=== PATIENT | female | born 1955 | race Caucasian/White ===

== ENCOUNTER 2020-06-07 06:09 | Inpatient (IN) ==
--- NOTE | 2020-05-20 13:11 | PAT Medication Instructions ---
Medication Instructions Date of Service May 20, 2020 Home Medications bisoprolol-hydrochlorothiazide 1 tab PO QAM cholecalciferol (vitamin D3) [Vitamin D3] 75 mcg PO QAM cyanocobalamin (vitamin B-12) 1,000 mcg PO QAM levothyroxine 88 mcg PO QAM multivitamin 1 tab PO QAM DO NOT take the morning of surgery cholecalciferol (vitamin D3) [Vitamin D3] 75 mcg PO QAM cyanocobalamin (vitamin B-12) 1,000 mcg PO QAM multivitamin 1 tab PO QAM Take morning of surgery With a small sip of water, OTHERWISE NOTHING TO EAT OR DRINK AFTER MIDNIGHT: bisoprolol-hydrochlorothiazide 1 tab PO QAM levothyroxine 88 mcg PO QAM Other Notes If you have any questions please call us at [phone] or [phone] or [phone] or [phone]
--- NOTE | 2020-05-23 12:14 | Anesthesiology Consultation ---
Date of Service May 23, 2020 Assessment & Plan (1) Encounter for pre-operative examination: COVID screening: Per assessment on 05/23: Travel screen negative, no known COVID- 19 positive contacts or current COVID-19 related symptoms. Patient was COVID positive 06/08/2019 (Hospitalized at [place]) > symptoms at time of difficulty eating, nausea, chills, mild dyspnea, fever > resolved except residual, mild occasional SOB. Surgeon arranging preop COVID testing. Awaiting results. Chart Review Chart Review: Acceptable Risk for Surgery and Patient seen in Pre Admission Testing Teaching & Discussion Pre-Anesthesia Teaching/Discussion Notes: Instructed NPO after midnight before surgery,except medications with 15 cc of water. Medication instructions provided according to the PAT guidelines. History Surgery Operation Date: 06/07/20 07:45 Proposed Procedures p L2-l3, L5-S1 Decompression and Fusion, L4-L5 Hardware Removal, Spinal Cord Monitoring - Rashad Cowatr, DO Height/Weight Height: 5 ft 7 in Weight: 110 kg Allergies Allergy/AdvReac Type Severity Reaction Status Date / Time No Known Allergies Verified 05/07/20 13:39 Medications Home Medications Medication Instructions Recorded Confirmed Last Taken bisoprolol-hydrochlorothiazide 1 tab PO QAM 05/07/20 05/07/20 Unknown cholecalciferol (vitamin D3) 75 mcg PO QAM 05/07/20 05/07/20 Unknown [Vitamin D3] cyanocobalamin (vitamin B-12) 1,000 mcg PO QAM 05/07/20 05/07/20 Unknown levothyroxine 88 mcg PO QAM 05/07/20 05/07/20 Unknown multivitamin 1 tab PO QAM 05/07/20 05/07/20 Unknown Past Medical History Medical History (Updated 05/24/20 @ 08:28 by Theresa Kang) Arthritis GERD (gastroesophageal reflux disease) controlled History of anemia History of COVID-19 COVID positive 06/08/19 (Hospitalized at [place]) > symptoms at time of difficulty eating, nausea, chills, mild dyspnea, fever > resolved except residual mild, occasional sob (significantly improved) Hx of thyroid nodule s/p thyroidectomy Hypertension Hypothyroidism Obesity Exercise / Class Metabolic Activity III < 4 Walking/Shop/Light housework Past Family History Family History Grandmother (Maternal) Family hx of colon cancer Other No family history of adverse response to anesthesia Past Surgical History Surgical History Fusion of spine Lumbar H/O total thyroidectomy History of bilateral tubal ligation History of carpal tunnel release R/L History of colonoscopy History of esophagogastroduodenoscopy (EGD) History of repair of rotator cuff Right History of total knee replacement R/L [place] teeth removed Past Anesthesia History No Family Hx of Anesthesia Complications and Other ("slow to wake" > no known hx of reintubation) History of PONV History of PONV (x1 episode) and Hx of Motion Sickness (+ vertigo) Social History Smoking Status: Never smoker Do You Dip or Chew Tobacco: No Hx Alcohol Use: No Hx Substance Use: No substance use type: does not use Review of Systems + Snoring (no apnea events). Does have mild, residual sob on occasion since have COVID infection 05/2019- patient states significantly improving but does still get episodes. Patient denies chest pain, fever, chills, cough, wheezing, palpitations. Physical Exam Vital Signs VITALS BP 104/69 P 75 TEMP 98.2 SP02 98%RA RESP 16 PHYSICAL Full neck and c-spine range of motion. Full TMJ range of motion. TMD 3 finger breaths Mallampati Score 1 Dentition: intact Lungs: clear throughout to auscultation Cardiac: regular rate and rhythm, no murmurs noted Spine: normal Carotid arteries: negative bruit Extremities: no edema Testing Laboratory Results 05/23/20 13:02 05/23/20 13:02 PT 9.8 Seconds (9.0-12.0) 05/23/20 13:02 INR 1.0 (0.9-1.1) 05/23/20 13:02 APTT 27.3 Seconds (21.0-31.0) 05/23/20 13:02 Urine Color Yellow 05/23/20 Unknown Urine Appearance Clear (Clear) 05/23/20 Unknown Urine pH 5.0 (4.5-7.5) 05/23/20 Unknown Ur Specific [place] 1.024 (1.000-1.030) 05/23/20 Unknown Urine Protein Negative (Negative) 05/23/20 Unknown Urine Glucose (UA) Negative (Negative) 05/23/20 Unknown Urine Ketones Trace (Negative) H 05/23/20 Unknown Urine Nitrite Negative (Negative) 05/23/20 Unknown Ur Leukocyte Esterase Negative (Negative) 05/23/20 Unknown Blood Type O Negative 05/23/20 13:02 Antibody Screen NEGATIVE 05/23/20 13:02 Electrocardiogram Date: 05/23/20 Findings: + NSR @ (65) Chest X-Ray Date: 05/23/20 FINDINGS: The cardiac and mediastinal contours are normal. There is no evidence of focal pulmonary consolidation. There is no evidence of failure. No pleural effusions are visualized. There are few subtle interstitial peripheral opacities likely representing areas of scarring. Degenerative changes are present within the thoracic spine. IMPRESSION: Subtle peripheral interstitial pulmonary opacities likely representing areas of scarring. No evidence of failure. No evidence of lobar consolidation. Report forwarded to PCP for continuity of care.
[2020-05-23 13:29] LABS: Appearance Urine Clear (Clear); Bilirubin Urine Negative (Negative); Blood Urine Negative (Negative); Color Urine Yellow; Glucose Urine UA Negative (Negative); Ketones Urine Trace (Negative); Leukocyte Esterase Urine Negative (Negative); Nitrite Urine Negative (Negative); Protein Urine Negative (Negative); Specific Gravity Urine 1.024 (1.000-1.030); Urobilinogen Urine Negative (Negative)
[2020-05-23 13:38] LABS: Basophils # (auto) 0.03 K/uL (0-0.2); Basophils % (auto) 0.6 %; Eosinophils # (auto) 0.09 K/uL (0-0.5); Eosinophils % (auto) 1.7 %; Hematocrit (blood only) 34.9 % (37-47); Hemoglobin 11.5 g/dL (12.0-16.0); Lymphocytes # (auto) 1.57 K/uL (1.2-3.4); Lymphocytes % (auto) 30.1 %; Mean Corpuscular Hemoglobin 29.1 pg (25-34); Mean Corpuscular Volume 88.4 fL (80-100); Mean Platelet Volume 9.4 fL (7.4-10.4); Monocytes # (auto) 0.23 K/uL (0.11-0.59); Monocytes % (auto) 4.4 %; Neutrophils # (auto) 3.29 K/uL (1.4-6.5); Neutrophils % (auto) 63.2 %; Platelet Count 283 K/uL (130-400); RDW Coefficient of Variation 13.9 % (11.5-14.5); RDW Standard Deviation 45.6 fL (36.4-46.3); Red Blood Count 3.95 M/uL (4.2-5.4); White Blood Count 5.21 K/uL (4.8-10.8)
--- NOTE | 2020-05-23 13:44 | XRay Report ---
XR chest Pre-admission PA/Lat CLINICAL HISTORY: PREOP COMPARISON STUDY: No previous studies for comparison. FINDINGS: The cardiac and mediastinal contours are normal. There is no evidence of focal pulmonary co nsolidation. There is no evidence of failure. No pleural effusions are visualized.[There are few subt le interstitial peripheral opacities likely representing areas of scarring. Degenerative changes are present within the thoracic spine. IMPRESSION: 1. Subtle peripheral interstitial pulmonary opacities likely representing areas of scarring. 2. No evidence of failure. No evidence of lobar consolidation ACT 112: Negative or not required by law. Electronically signed by: Jose Arias M.D. 05/23/2020 1:43 PM
[2020-05-23 13:46] LABS: Partial Thromboplastin Time 27.3 Seconds (21.0-31.0); Prothrombin Time 9.8 Seconds (9.0-12.0)
[2020-05-23 14:07] LABS: BUN Creatinine Ratio 19.3 (10-20); Creatinine Clr Calc Pharmacy 78.1 ml/min; Est GFR (African American) 75.3; Est GFR (Non-African American) 64.9; Potassium 4.1 mmol/L (3.5-5.1)
--- NOTE | 2020-05-23 16:47 | Electrocardiogram Report ---
Test Reason : Blood Pressure : / mmHG Vent. Rate : 065 BPM Atrial Rate : 065 BPM P-R Int : 170 ms QRS Dur : 084 ms QT Int : 446 ms P-R-T Axes : 046 053 062 degrees QTc Int : 463 ms Normal sinus rhythm Normal ECG No previous ECGs available Confirmed by Mauricio Rodriguez ([id number]) on 05/23/2020 4:47:10 PM Referred By: Rashad Cowart Confirmed By:Usama Rodriguez
[~2020-06-07 06:09] MED LIST: ACETAMINOPHEN 500 MG TAB PO SCH; CeleBREX 200 MG CAP PO SCH; GABAPENTIN 600 MG DOSE PO SCH; LR 15ML/HR IV SCH; ceFAZolin 2000MG 2,000 MG/15 ML SYR IV SCH
[2020-06-07] MEDS ORDERED: MIDAZOLAM HCL 1 MG/ML 2ML VIAL ONE (06:51)
[2020-06-07] MEDS ORDERED: fentaNYL citrate 100 MCG/2 ML VIAL ONE ×2 (06:51)
[2020-06-07] MEDS ORDERED: BUPIVACAINE/EPINEPHRINE 0.5% MPF 1:200,000 30 ML VIAL ONE (07:06)
[2020-06-07] MEDS ORDERED: BACITRACIN INJ 50,000 UNIT VIAL ONE (07:06)
[2020-06-07] MEDS ORDERED: fentaNYL citrate 100 MCG/2 ML VIAL IV PRN (07:19)
[2020-06-07] MEDS ORDERED: ePHEDrine sulfate 50 MG/ML AMP IV PRN (07:19)
[2020-06-07] MEDS ORDERED: ATROPINE SULFATE 0.1 MG/ML 10ML SYR IV PRN (07:19)
[2020-06-07] MEDS ORDERED: HYDROmorphone INJ 1 MG/ML SYRINGE IV PRN (07:19)
[2020-06-07] MEDS ORDERED: ONDANSETRON INJ 2 MG/ML 2 ML VIAL IV PRN ×2 (07:19→12:06)
--- NOTE | 2020-06-07 07:34 | History & Physical Bridge Note ---
Date of Service June 07, 2020 History & Physical Bridge Note I have examined the patient, reviewed the History & Physical and in the interval since the performance of the History & Physical I have noted the following changes of clinical significance: no changes noted
--- NOTE | 2020-06-07 07:35 | History & Physical Report ---
Date of Service June 07, 2020 Assessment & Plan (1) Neurogenic claudication due to lumbar spinal stenosis: Admission and Anticipated Discharge Date Admission Date: L2-L3, L5-S1 decompression fusion, L3-L5 hardware removal History of Present Illness Chief Complaint: Back and bilateral leg pain Primary Care Provider: Carmella Corral This is a 65-year-old female who presents with chronic persistent back and leg pain after failing course of nonoperative care is here for surgical invention. Allergies Allergy/AdvReac Type Severity Reaction Status Date / Time No Known Allergies Verified 06/07/20 06:29 Home Medications Medication Instructions Recorded Confirmed Type bisoprolol-hydrochlorothiazide 1 tab PO QAM 05/07/20 06/07/20 History cholecalciferol (vitamin D3) 75 mcg PO QAM 05/07/20 06/07/20 History [Vitamin D3] cyanocobalamin (vitamin B-12) 1,000 mcg PO QAM 05/07/20 06/07/20 History levothyroxine 88 mcg PO QAM 05/07/20 06/07/20 History multivitamin 1 tab PO QAM 05/07/20 06/07/20 History Past Med/Surg History Medical History (Updated 06/07/20 @ 07:35 by Rashad Cowart DO) Arthritis GERD (gastroesophageal reflux disease) controlled History of anemia History of COVID-19 COVID positive 06/08/19 (Hospitalized at [place]) > symptoms at time of difficulty eating, nausea, chills, mild dyspnea, fever > resolved except residual mild, occasional sob (significantly improved) Hx of thyroid nodule s/p thyroidectomy Hypertension Hypothyroidism Obesity Surgical History Fusion of spine Lumbar H/O total thyroidectomy History of bilateral tubal ligation History of carpal tunnel release R/L History of colonoscopy History of esophagogastroduodenoscopy (EGD) History of repair of rotator cuff Right History of total knee replacement R/L [place] teeth removed Family History Grandmother (Maternal) Family hx of colon cancer Other No family history of adverse response to anesthesia Social History Smoking Status: Never smoker Second Hand Exposure: Yes ( A CHILD); Do You Dip or Chew Tobacco: No; Hx Alcohol Use: No Hx Substance Use: No Preferred Language: Syrian Entry Driver Operator Required: No Beliefs That Will Affect Care: None Current Living Situation: Spouse Feels Safe at Home: Yes Safety Concerns: Feels Safe At This Time Assistive Devices: Glasses Physical Exam Physical Exam: Patient is alert and oriented Heart regular in rhythm Lungs clear to auscultation Results & Data ([facility]) Vital Signs (Past 12 Hours) Vital Signs Temp Pulse Resp BP Pulse Ox 06/07/20 06:45 37.5 C 83 22 155/84 H 97
[2020-06-07] MEDS ORDERED: HYDROmorphone INJ 2 MG/ML SYR/VIAL ONE (07:54)
[2020-06-07] MEDS ORDERED: DEXAMETHASONE SOD INJ 4 MG/ML VIAL ONE (08:04)
[2020-06-07] MEDS ORDERED: ROCURONIUM BROMIDE 10 MG/ML 5 ML VIAL IV ONE (08:04)
[2020-06-07] MEDS ORDERED: GLYCOPYRROLATE 0.2 MG/ML VIAL ONE (08:04)
[2020-06-07] MEDS ORDERED: PROPOFOL IV EMULSION 10 MG/ML 20 ML VIAL IV ONE (08:04)
[2020-06-07] MEDS ORDERED: LIDOCAINE HCL 2% 2 ML VIAL/AMP(20MG/ML) INFIL ONE (08:04)
[2020-06-07] MEDS ORDERED: LARYING-O-JET KIT (LTA) ONE (08:04)
[2020-06-07] MEDS ORDERED: NEOSTIGMINE METHYLSULFATE 1 MG/ML 10ML VIAL ONE (08:04)
[2020-06-07] MEDS ORDERED: ONDANSETRON INJ 2 MG/ML 2 ML VIAL ONE (08:04)
[2020-06-07] MEDS ORDERED: ALBUMIN HUMAN 5% 12.5 GM/250 ML VIAL IV ONE ×2 (08:08→10:27)
--- NOTE | 2020-06-07 10:37 | Operative Report ---
Post Operative Report Pre & Post Diagnosis Operation Date: 06/07/20 07:45 Pre-Op Diagnosis: Spinal Stenosis, Lumbar Region with Neurogenic Post-Op Diagnosis: Spinal Stenosis, Lumbar Region with Neurogenic I identified the patient and participated in the time-out.: Yes Procedure Operation Date: 06/07/20 07:45 Actual Procedures #1 removal of posterior instrumentation L3-4 L4-5. #2 exploration of fusion L3- 4 L4-5. #3 lumbar decompression with bilateral medial facetectomies and foraminotomies L1-2, L2-3 and L5-S1. #4 posterior spinal fusion L2-3 L5-S1. #5 placed posterior instrumentation L2-S1. #6 interbody fusion L2-3 and L5-S1. #7 placement peek cage 10 x 22 mm at L2-L3 and 12 x 22 mm at L5-S1. #8 placement locally harvested morselized autograft in the posterior gutters. #9 placement infuse collagen sponge master graft in the posterior lateral gutters and I factor in the interbody space. Surgeon Rashad Cowart, DO Project Manager Process Development Demetris Mcdermott Estimated Blood Loss 700 Findings See Below Patient is 5 foot 7 weighing over 108 kg with a BMI in excess of 37. Patient's body habitus combined with an EBL of greater than 700 cc created significant technical difficulty adding least 50% increase to the operative time. Specimens None Indications This is a 65-year-old female presents with above-mentioned diagnosis after failing stents course of nonoperative care is here for the above-mentioned procedure. Description of Procedure Patient was met with identified informed consent obtained. Patient was then taken to the operative suite underwent a patient placed in a prone position the Xavi table atop the [place] frame. All bony prominences well-padded eyes inspected to ensure no external pressure placed upon the bed at this point the lumbar spine was prepped and draped in a sterile fashion. Sharp dissection with assistance pericardial performed down to and exposing the lamina and transverse processes of L2 instrumentation at L3-L4-L5 and the lamina and sacral ala of S1. I then proceeded move the hardware at L3-L4-L5 bilaterally explored the fusion mass noting it to be mature and intact. And then performed complete laminectomy L5 including bilateral medial facetectomies and foraminotomies addressing severe spinal stenosis. Then proceeded to L2-3. Again complete laminectomy of L2 partial laminectomy L1 was performed including bilateral medial facetectomies and foraminotomies addressing severe spinal stenosis. Pedicle screws were then placed in L2 L3-L4-L5 and S1 levels bilaterally with assistance of fluoroscopy and the proper sized leif placed. By way of a transfemoral approach and left we discectomy of L5-S1 was performed endplates curetted to subcortical being bone and a 12 x 22 mm peek cage filled with I factor tapped in position. Then proceeded to L2-L3. And again by way of transfer approach and left pleat discectomy performed endplates curetted to subcortically bone and an 11 x 22 mm peek cage filled with I factor tapped in position. The rods were then locked in final position bilaterally. Transverse processes of L2-L3 L5 and the sacral ala burred to subcortical bleeding bone. Infuse collagen sponge, master graft was then placed in the posterior gutters. 15 round AYAD drain inserted. The incision was then closed with 1 Vicryl fascia 2-0 Vicryl subcutaneously and 4 Monocryl for final skin closure. Steri-Strips dressings placed. Patient waken taken PACU stable condition. Please note spinal cord monitoring was utilized at the procedure no changes noted. Lastly Demetris Mcdermott was present at the entire procedure involved the patient positioning complex portions of the surgery and final skin closure. I attest to the content of the Intraoperative Record and any orders documented therein. Any exceptions are noted below.
[2020-06-07] MEDS ORDERED: FLOSEAL HEMOSTATIC MATRIX 10ML TOP ONE (10:46)
--- NOTE | 2020-06-07 10:49 | Fluoroscopy Report ---
FL lumbar spine 2-3V CLINICAL HISTORY: L4-5 REMOVE HARDWARE/L2-3 L5-S1 DECOMPRESSION/FUSION/INTRBOD COMPARISON STUDY: None. FLUOROSCOPY TIME: 25 seconds. FINDINGS: 3 fluoroscopic spot images demonstrate posterior decompression and fusion from L2 through S 1 with pedicle screws and rods. Hardware appears intact. IMPRESSION: Fluoroscopy provided for L2-S1 posterior decompression and fusion ACT 112: Negative or not required by law. Electronically signed by: Kings Kay M.D. 06/07/2020 10:47 AM
--- NOTE | 2020-06-07 11:39 | Anesthesiology Progress Note ---
Date of Service June 07, 2020 Anesthesia Post Procedure Vital Signs Vital Signs: Temp Pulse Pulse Resp BP BP Pulse Ox 06/07/20 11:25 61 16 134/69 98 06/07/20 11:15 60 15 115/65 97 06/07/20 11:07 97.2 F L 67 16 132/68 97 06/07/20 06:45 99.5 F 83 22 155/84 H 97 Pain Intensity Lower Back: Pain Intensity: 9 Transfer of Care Handoff Completed per policy Notes Mental Status: alert / awake / arousable and participated in evaluation Patient Amnestic to Procedure: Yes Nausea / Vomiting: adequately controlled Pain: adequately controlled Airway Patency, RR, SpO2: stable & adequate BP & HR: stable & adequate Hydration State: stable & adequate Anesthetic Complications: no major complications apparent and Pt Satisfied with anesthetic care
[2020-06-07] MEDS ORDERED: bisacodyL 10 MG SUPP PR PRN (12:06)
[2020-06-07] MEDS ORDERED: METOCLOPRAMIDE HCL INJ 5 MG/ML 2 ML VIAL IV PRN (12:06)
[2020-06-07] MEDS ORDERED: diphenhydrAMINE Capsule 25 MG CAP PO PRN (12:06)
[2020-06-07] MEDS ORDERED: LORazepam 0.5 MG/1 ML VIAL IV PRN (12:06)
[2020-06-07] MEDS ORDERED: LORazepam 0.5 MG TAB PO PRN (12:06)
[2020-06-07] MEDS ORDERED: DO NOT ADMINISTER FLU VACCINE PRN (12:06)
[2020-06-07] MEDS ORDERED: MAGNESIUM HYDROXIDE SUSP 30 ML UDC PO PRN (12:06)
[2020-06-07] MEDS ORDERED: ALUMINUM/MAGNESIUM SUSP 30 ML UDC PO PRN (12:06)
[2020-06-07] MEDS ORDERED: HYDROmorphone INJ 0.5 MG/0.5 ML SYR IV PRN (12:06)
[2020-06-07] MEDS ORDERED: hydrOXYzine HCl 25 MG TAB PO PRN (12:06)
[2020-06-07] MEDS ORDERED: DO NOT ADMINISTER PNEUMOCOCCAL VACCINE PRN (12:06)
[2020-06-07] MEDS ORDERED: ACETAMINOPHEN 500 MG TAB PO PRN (12:06)
[2020-06-07] MEDS ORDERED: PROMETHAZINE HCL 12.5 MG in SODIUM CHLORIDE 0.9% 50 ML IV PRN (12:06)
[2020-06-07] MEDS ORDERED: FAMOTIDINE 20 MG TAB PO PRN (12:06)
[2020-06-07] MEDS ORDERED: NALOXONE HCL 0.4 MG/1 ML VIAL/CARP IV PRN (12:06)
[2020-06-07] MEDS ORDERED: ACETAMINOPHEN 1,000 MG/100 ML VIAL IV PRN (12:06)
[2020-06-07] MEDS ORDERED: ONDANSETRON 4 MG OD TAB PO PRN (12:06)
[2020-06-07] MEDS ORDERED: SOD PHOSPHATE/SOD BIPHOSPHATE ENEMA 132 ML BTL PR PRN (12:06)
[2020-06-07] MEDS: HYDROmorphone INJ 1 MG/ML SYRINGE IV PRN ×2 (12:17→16:52)
[2020-06-07] MEDS: LACTATED RINGER'S 1,000 ML IV SCH ×2 (12:17→19:37)
--- NOTE | 2020-06-07 12:23 | Hospitalist Consultation ---
Date of Consultation June 07, 2020 Assessment & Plan (1) Neurogenic claudication due to lumbar spinal stenosis: (2) S/P spinal surgery: - Pain management, bowel regimen and DVT ppx per the primary team - PT/OT consults - Follow am CBC to monitor for acute blood loss, 700 mL blood loss intra operatively - Currently on LR 150 ml/hr, cont - No indication of airway compromise as sats at 98% on 2L O2, does not wear o2 at baseline, no pharyngeal edema. Will order Chloraseptic spray for numbing effects s/p intubation/extubation in regards to surgery. (3) Hypertension: - Continue bisoprolol/HCTZ in am (4) Hypothyroidism: - Cont levothyroxine 88 mcg QAM (5) History of anemia: - Hgb of 11.5 on 05/23, monitor am labs (6) Obesity: - BMI of 37.3, diet and exercise to be encouraged (7) Arthritis: - Stable (8) GERD (gastroesophageal reflux disease): - Stable DVT ppx: teds, scds CODE: FUll Dispo: From home, dc per primary team. Thank you for involving us in the care of Ms. Gloria. Please do not hesitate to call with questions or concerns. At this time medicine service will follow along. Supervising Physician Co-Signing Physician Notes Care coordinated with Zina Hernandez PA-C. Agree with above note. Patient seen and examined. Please refer to her notes for full details. Vital signs reviewed. Physical exam: General exam: Alert and oriented. Not in acute distress. CVS: S1 and S2 heard, regular rate and rhythm, no murmurs. RS: Clear to auscultation, no wheezing or crackles. ABD: Soft, bowel sounds present, nontender, no distention. DIRECTOR OF CURRICULUM AND INSTRUCTION: Nonfocal. Musculoskeletal s/p back surgery dressing intact EXT: No edema, no erythema. Labs: Reviewed. Assessment and plan: 65F with hx of htn, hypothyroidism, obesity is s/p back surgery back surgery complains of pain at surgery site pain control management as per ortho HTN on bisoprolol/hctz will monitor Other diagnosis and plan of care as per Zina Hernandez PA-C. Roland nation MD. History of Present Illness Reason for Consultation: Medical management Requesting Physician: Dr. Cowart Attending Physician: Rashad Cowart, DO History of Present Illness This is a 65 yo F with PMHx of HTN, HLD, anemia, GERD, arthritis, hypothyroidism, obesity with BMI of 37.3 and previous spinal [place] [address] Cowart, who presents for elective lumbar decompression fusion with bilateral medial facetectomies and foraminotomies from L1-S1 today. The patient was seen and examined this morning. Pt states her pain is 8/10, and that she has a headache. She feels slightly dizzy too. Pt had Dilaudid about 30 minutes ago for the pain, and fentanyl in the PACU. She has a sore throat, and feels it's painful to swallow phlegm right now. Last BM was this morning, has not yet urinated. Denies nausea, vomiting. She lives at home with her . Allergies Allergy/AdvReac Type Severity Reaction Status Date / Time No Known Allergies Verified 06/07/20 06:29 Home Medications Medication Instructions Recorded Confirmed Type bisoprolol-hydrochlorothiazide 1 tab PO QAM 05/07/20 06/07/20 History cholecalciferol (vitamin D3) 75 mcg PO QAM 05/07/20 06/07/20 History [Vitamin D3] cyanocobalamin (vitamin B-12) 1,000 mcg PO QAM 05/07/20 06/07/20 History levothyroxine 88 mcg PO QAM 05/07/20 06/07/20 History multivitamin 1 tab PO QAM 05/07/20 06/07/20 History Patient History Medical History (Updated 06/07/20 @ 12:19 by Zina Hernandez PA-C) Arthritis GERD (gastroesophageal reflux disease) controlled History of anemia History of COVID-19 COVID positive 06/08/19 (Hospitalized at [place]) > symptoms at time of difficulty eating, nausea, chills, mild dyspnea, fever > resolved except residual mild, occasional sob (significantly improved) Hx of thyroid nodule s/p thyroidectomy Hypertension Hypothyroidism Obesity Surgical History (Updated 06/07/20 @ 12:19 by Zina Hernandez PA-C) Fusion of spine Lumbar H/O total thyroidectomy History of bilateral tubal ligation History of carpal tunnel release R/L History of colonoscopy History of esophagogastroduodenoscopy (EGD) History of repair of rotator cuff Right History of total knee replacement R/L [place] teeth removed Family History Grandmother (Maternal) Family hx of colon cancer Other No family history of adverse response to anesthesia Social History Smoking Status: Never smoker Second Hand Exposure: Yes ( A CHILD); Do You Dip or Chew Tobacco: No; Hx Alcohol Use: No Hx Substance Use: No Preferred Language: Lao Analysis Consultant Required: No Beliefs That Will Affect Care: None Current Living Situation: Spouse Feels Safe at Home: Yes Safety Concerns: Feels Safe At This Time Assistive Devices: Glasses and Walker Review of Systems Review of Systems: Constitutional: No fever, sweats or chills, + headache Eyes: No diplopia, no worsening or blurred vision ENT: normal hearing, + sore throat, + dysphagia Respiratory: No cough, sputum, dyspnea at rest or on exertion Cardiovascular: No chest pain, tightness or palpitations Abdomen: No pain, nausea, vomiting, diarrhea or constipation Musculoskeletal: No joint pain, calf pain, swelling Neurologic: No weakness, numbness/tingling, or balance problems Psychiatric: No anxiety or depression Skin: No rash or itch Physical Exam Physical Exam: General: awake, alert, uncomfortable appearing, keeps eyes closed during majority of visit Head: Normocephalic, atraumatic ENT: PERRL, EOMI, no pharyngeal exudate, no tongue edema, no pharygeal edema, slight erythema, mucous membranes moist Chest: Clear to auscultation, on room air, no adventitious breath sounds Cardiac: Regular rate and rhythm, no murmur, no JVD, normal peripheral pulses, good capillary refill Abdominal: NABS x 4 quadrants, soft, nondistended, nontender to palpation, no rebound or guarding Extremities: Normal inspection, no peripheral edema or erythema, calfs nontender to palpation Psych: Normal mood and affect Neuro: AAO x 3, strength intact bilaterally and rated 5/5, no motor deficits, speech is clear, no peripheral sensory deficits Results & Data Results & Data ([facility]) Vital Signs (Past 12 Hours) Vital Signs Temp Pulse Pulse Resp BP BP Pulse Ox 06/07/20 12:06 36.6 C 66 16 118/74 95 06/07/20 11:55 52 L 18 104/58 L 93 06/07/20 11:45 61 13 115/56 L 97 06/07/20 11:35 36.2 C L 61 15 132/73 95 06/07/20 11:25 61 16 134/69 98 06/07/20 11:15 60 15 115/65 97 06/07/20 11:07 36.2 C L 67 16 132/68 97 06/07/20 06:45 37.5 C 83 22 155/84 H 97
[2020-06-07] MEDS ORDERED: CHLORASEPTIC 1.4% SOLN 180 ML BTL MT PRN (12:56)
[2020-06-07] MEDS: ceFAZolin 2000MG 2,000 MG/15 ML SYR IV SCH ×2 (14:04→22:53)
[2020-06-07] MEDS: DOCUSATE SODIUM/SENNA 50/8.6MG TAB PO SCH (20:32)
[2020-06-07] MEDS: traMADol HCL 50 MG TABLET PO PRN (20:32)
[2020-06-07] MEDS: oxyCODONE HCL IR 5 MG TAB (IMMEDIATE RELEASE) PO PRN (22:49)
[2020-06-08] MEDS: LACTATED RINGER'S 1,000 ML IV SCH (02:11)
[2020-06-08] MEDS: LEVOTHYROXINE SODIUM 88 MCG TABLET PO SCH (05:56)
[2020-06-08 06:11] LABS: Basophils # (auto) 0.01 K/uL (0-0.2); Basophils % (auto) 0.1 %; Hematocrit (blood only) 26.3 % (37-47); Hemoglobin 8.7 g/dL (12.0-16.0); Immature Granulocytes # (auto) 0.03 K/uL (0.00-0.02); Immature Granulocytes % (auto) 0.3 %; Lymphocytes # (auto) 0.82 K/uL (1.2-3.4); Lymphocytes % (auto) 8.2 %; Mean Corpuscular Hemoglobin 29.1 pg (25-34); Mean Corpuscular Hgb Conc 33.1 g/dL (32-36); Mean Platelet Volume 9.1 fL (7.4-10.4); Monocytes # (auto) 0.62 K/uL (0.11-0.59); Monocytes % (auto) 6.2 %; Neutrophils # (auto) 8.55 K/uL (1.4-6.5); Neutrophils % (auto) 85.2 %; Platelet Count 212 K/uL (130-400); RDW Coefficient of Variation 14.1 % (11.5-14.5); RDW Standard Deviation 45.4 fL (36.4-46.3); Red Blood Count 2.99 M/uL (4.2-5.4); White Blood Count 10.03 K/uL (4.8-10.8)
[2020-06-08] MEDS: POLYETHYLENE (MIRALAX) 17 GM PACK PO SCH ×3 (06:37→17:35)
[2020-06-08 06:48] LABS: BUN Creatinine Ratio 21.3 (10-20); Calcium 8.4 mg/dl (8.5-10.1); Creatinine Clr Calc Pharmacy 89.9 ml/min; Est GFR (African American) 90.3; Est GFR (Non-African American) 77.9; Potassium 3.9 mmol/L (3.5-5.1)
[2020-06-08] MEDS: BISOPROLOL FUMARATE 5 MG TAB PO SCH (08:05)
[2020-06-08] MEDS: CHOLECALCIFEROL 1,000 UNITS 25 MCG TAB PO SCH (08:05)
[2020-06-08] MEDS: MULTIVITAMIN TAB PO SCH (08:05)
[2020-06-08] MEDS: CYANOCOBALAMIN 500 MCG TABLET (VITAMIN B-12) PO SCH (08:05)
[2020-06-08] MEDS: hydroCHLOROthiazide 25 MG TAB PO SCH (08:05)
--- NOTE | 2020-06-08 08:38 | Orthopedic Progress Note ---
Date of Service June 08, 2020 Assessment & Plan (1) Neurogenic claudication due to lumbar spinal stenosis: Admission and Anticipated Discharge Date Admission Date: June 07, 2020 At this time we will initiate physical therapy monitor AYAD output and hematocrit hopefully discharge home Wednesday. Subjective Patient's back pain is controlled leg symptoms improved. She denies any shortness of breath or lightheadedness. Physical Exam Physical Exam: Patient is good strength testing appears comfortable. Results & Data ([facility]) Vital Signs (Past 12 Hours) Vital Signs Temp Pulse Resp BP Pulse Ox 06/08/20 07:38 36.5 C 52 L 16 106/64 98 06/08/20 03:05 36.6 C 54 L 15 114/72 97 06/07/20 22:19 36.4 C L 54 L 16 110/70 97
[2020-06-08] MEDS: dexAMETHasone 8 MG in SYRINGE 0 ML IV SCH (09:22)
[2020-06-08] MEDS: oxyCODONE HCL IR 5 MG TAB (IMMEDIATE RELEASE) PO PRN ×3 (09:23→23:12)
--- NOTE | 2020-06-08 20:02 | Hospitalist Progress Note ---
Date of Service June 08, 2020 Assessment & Plan (1) Neurogenic claudication due to lumbar spinal stenosis: (2) S/P spinal surgery: S/P day #1 removal of posterior instrumentation L3-4 L4-5. #2 exploration of fusion L3-4 L4-5. #3 lumbar decompression with bilateral medial facetectomies and foraminotomies L1-2, L2-3 and L5-S1. #4 posterior spinal fusion L2-3 L5-S1. #5 placed posterior instrumentation L2-S1. #6 interbody fusion L2-3 and L5-S1. #7 placement peek cage 10 x 22 mm at L2-L3 and 12 x 22 mm at L5-S1. #8 placement locally harvested morselized autograft in the posterior gutters. #9 placement infuse collagen sponge master graft in the posterior lateral gutters and I factor in the interbody space by Dr. Cowart No postop complication Continue incentive spirometry Hgb dropped to 8.7 Continue pain control Continue PT/OT eval (3) Hypertension: BP stable Continue bisoprolol/HCTZ (4) Hypothyroidism: Continue levothyroxine 88 mcg QAM (5) Acute blood loss anemia: (6) History of anemia: Due to recent surgical procedure Hgb was 11.5 on 05/23/20 Hgb dropped to 8.7 Continue monitor CBC (7) Obesity: BMI of 37.3 Counseling on diet and exercise (8) Arthritis: -Stable (9) GERD (gastroesophageal reflux disease): Stable DVT ppx: teds, scds CODE STATUS FULL CODE Dispo as per ortho Admission and Anticipated Discharge Date Admission Date: June 07, 2020 Subjective Pt was seen and examined for follow of back surgery Lying in bed with no distress. Pt said that pain is control She said that she walk with physical therapy today with no distress Denies any chest pain, palpitation, dizziness and SOB Review of Systems Review of Systems: All systems reviewed & are unremarkable except as noted in Subjective Physical Exam Physical Exam: General- No acute distress Head- atraumatic Eyes- PERRL, EOMI, ENT- oropharynx clear Neck- supple, no JVD Lungs- clear to auscultation Heart- regular rhythm; no murmur Abdomen- normal bowel sounds, soft, nontender Extremities- no calf tenderness Neuro- alert, oriented x 3; PERRL, EOMI; no facial palsy; no dysarthria Skin- warm & dry Results & Data Results & Data ([facility]) Vital Signs (Past 12 Hours) Vital Signs Temp Pulse Resp BP Pulse Ox 06/08/20 15:25 36.8 C 63 16 114/64 97 06/08/20 11:57 98
[2020-06-08] MEDS: DOCUSATE SODIUM/SENNA 50/8.6MG TAB PO SCH (20:08)
[2020-06-09] MEDS: POLYETHYLENE (MIRALAX) 17 GM PACK PO SCH ×4 (00:23→16:50)
[2020-06-09] MEDS: LEVOTHYROXINE SODIUM 88 MCG TABLET PO SCH (05:55)
[2020-06-09] MEDS: oxyCODONE HCL IR 5 MG TAB (IMMEDIATE RELEASE) PO PRN ×3 (05:58→19:33)
[2020-06-09 06:49] LABS: Hematocrit (blood only) 29.6 % (37-47); Hemoglobin 9.7 g/dL (12.0-16.0)
[2020-06-09] MEDS: traMADol HCL 50 MG TABLET PO PRN ×2 (07:44→20:54)
[2020-06-09] MEDS: hydroCHLOROthiazide 25 MG TAB PO SCH (08:19)
[2020-06-09] MEDS: dexAMETHasone 8 MG in SYRINGE 0 ML IV SCH (08:20)
[2020-06-09] MEDS: BISOPROLOL FUMARATE 5 MG TAB PO SCH (08:20)
[2020-06-09] MEDS: CHOLECALCIFEROL 1,000 UNITS 25 MCG TAB PO SCH (08:20)
[2020-06-09] MEDS: MULTIVITAMIN TAB PO SCH (08:20)
[2020-06-09] MEDS: CYANOCOBALAMIN 500 MCG TABLET (VITAMIN B-12) PO SCH (08:20)
--- NOTE | 2020-06-09 10:29 | Orthopedic Progress Note ---
Date of Service June 09, 2020 Assessment & Plan (1) Neurogenic claudication due to lumbar spinal stenosis: Admission and Anticipated Discharge Date Admission Date: June 07, 2020 This time continue physical therapy monitor AYAD output anticipate discharge home tomorrow. Subjective Back pain controlled leg pain improved Physical Exam Physical Exam: Patient is in the chair at the bedside. Is good strength testing. Appears comfortable. Results & Data ([facility]) Vital Signs (Past 12 Hours) Vital Signs Temp Pulse Resp BP Pulse Ox 06/09/20 07:27 36.6 C 59 L 16 114/72 99
[2020-06-09] MEDS: DOCUSATE SODIUM/SENNA 50/8.6MG TAB PO SCH (19:57)
--- NOTE | 2020-06-09 19:58 | Hospitalist Progress Note ---
Date of Service June 09, 2020 Assessment & Plan (1) Neurogenic claudication due to lumbar spinal stenosis: (2) S/P spinal surgery: S/P day #2 removal of posterior instrumentation L3-4 L4-5. #2 exploration of fusion L3-4 L4-5. #3 lumbar decompression with bilateral medial facetectomies and foraminotomies L1-2, L2-3 and L5-S1. #4 posterior spinal fusion L2-3 L5-S1. #5 placed posterior instrumentation L2-S1. #6 interbody fusion L2-3 and L5-S1. #7 placement peek cage 10 x 22 mm at L2-L3 and 12 x 22 mm at L5-S1. #8 placement locally harvested morselized autograft in the posterior gutters. #9 placement infuse collagen sponge master graft in the posterior lateral gutters and I factor in the interbody space by Dr. Cowart No postop complication Continue incentive spirometry Hgb dropped to 8.7 Continue pain control Continue PT/OT eval (3) Hypertension: BP stable Continue bisoprolol/HCTZ (4) Hypothyroidism: Continue levothyroxine 88 mcg QAM (5) Acute blood loss anemia: (6) History of anemia: Due to recent surgical procedure Hgb was 11.5 on 05/23/20 Hgb improved from 8.7 to 9.7 Continue monitor CBC (7) Obesity: BMI of 37.3 Counseling on diet and exercise (8) Arthritis: -Stable (9) GERD (gastroesophageal reflux disease): Stable DVT ppx: teds, scds CODE STATUS FULL CODE Dispo as per ortho Admission and Anticipated Discharge Date Admission Date: June 07, 2020 Subjective Pt was seen and examined for postop follow up Lying in bed with no distress Pt denies any chest pain, palpitation, dizziness and SOB Review of Systems Review of Systems: All systems reviewed & are unremarkable except as noted in Subjective Physical Exam Physical Exam: General- No acute distress Head- atraumatic Eyes- PERRL, EOMI, ENT- oropharynx clear Neck- supple, no JVD Lungs- clear to auscultation Heart- regular rhythm; no murmur Abdomen- normal bowel sounds, soft, nontender Extremities- no calf tenderness Neuro- alert, oriented x 3; PERRL, EOMI; no facial palsy; no dysarthria Skin- warm & dry Results & Data Results & Data ([facility]) Vital Signs (Past 12 Hours) Vital Signs Temp Pulse Resp BP Pulse Ox 06/09/20 15:00 36.7 C 61 16 114/68 95
[2020-06-10] MEDS: oxyCODONE HCL IR 5 MG TAB (IMMEDIATE RELEASE) PO PRN ×2 (06:11→11:50)
[2020-06-10] MEDS: LEVOTHYROXINE SODIUM 88 MCG TABLET PO SCH (06:12)
[2020-06-10] MEDS: dexAMETHasone 8 MG in SYRINGE 0 ML IV SCH (07:43)
[2020-06-10] MEDS: BISOPROLOL FUMARATE 5 MG TAB PO SCH (07:43)
[2020-06-10] MEDS: CYANOCOBALAMIN 500 MCG TABLET (VITAMIN B-12) PO SCH (07:43)
[2020-06-10] MEDS: hydroCHLOROthiazide 25 MG TAB PO SCH (07:44)
[2020-06-10] MEDS: CHOLECALCIFEROL 1,000 UNITS 25 MCG TAB PO SCH (07:45)
[2020-06-10] MEDS: MULTIVITAMIN TAB PO SCH (07:46)
--- NOTE | 2020-06-10 09:34 | Discharge Summary ---
Date of Service June 10, 2020 Admission HPI Per Admitting Provider This is a 65-year-old female who presents with chronic persistent back and leg pain after failing course of nonoperative care is here for surgical invention. Principal Diagnosis Lumbar spinal stenosis with neurogenic claudication Discharge Data Allergies Allergy/AdvReac Type Severity Reaction Status Date / Time No Known Allergies Verified 06/07/20 06:29 Consultations 06/07/20 12:06 Consult Hospitalist Routine Procedures Performed Operation Date: 06/07/20 07:45 Actual Procedures p L2-L3, L5-S1 Decompression, Fusion and Interbody placement, L3-L5 Fusion, Spinal Cord Monitoring, Application of Bone Morphogenetic Protein and Allograft - Rashad Cowart DO s L3-L5 Hardware Removal - Rashad Cowart DO Ordered Studies 06/07/20 07:45 FL fluoroscopy <1hr Routine FL lumbar spine 2-3V Routine Hospital Course (1) Neurogenic claudication due to lumbar spinal stenosis: Patient with lumbar decompression fusion tolerated well second orthopedic for postoperative. Postop day 1 she was up and ambulating present postop #2 on postop day #3 AYAD drain decreased probably. Pain well controlled. Excellent strength testing. Socially discharged home. Discharge orders instructions from the chart for further review. Total Time Total Time Spent Total Time Spent (In Minutes): 20 minutes Discharge Plan Discharge Items Patient Disposition: Home - Self-Care Reason For Visit: Spinal Stenosis, Lumbar Region with Neurogenic Discharge Diagnosis: Lumbar spinal stenosis with neurogenic claudication Activity: As commented below Non-emergency contact: Primary Care Provider Call non-emergency contact if: you have any medication questions Follow-up/Referrals: Carmella Corral D.O. [Primary Care Provider] - Diet: Regular Addtl Attending Provider Instructions: ACTIVITY RECOMMENDATIONS: SELF CARE INSTRUCTIONS AFTER THORACIC/LUMBAR FUSIONS 1. You may walk to your tolerance. It is good exercise for your legs and back. Expect some back and intermittent leg aches and pains. 2. You may perform "counter-top" level activities (make a sandwich, radha with a project, etc.). 3. No bending or lifting of more than 10 pounds or back twisting of any nature (roll like a log when turning in bed). 4. You may ride in a car for 20-30 minutes at a time. No driving until after your first visit with your doctor. 5. Frequent changes of position and restricting sitting to 30 minutes at a time will help limit the amount of back spasms and stiffness you may experience. 6. You may discontinue the use of ambulatory aids (cane, crutches, etc.) once your strength and confidence allow. 7. You may billing analyst the shower and let water strike your incision when you arrive home at least once daily. Do not take a tub bath, sit in a hot tub or go into a swimming pool until after your first recheck in the office. SPECIAL CARE INSTRUCTIONS: VERY IMPORTANT TO READ AND REVIEW A. Your surgical incision has been closed with a cosmetic suture under the skin that will dissolve in about 6 weeks. In 14 days, you can use a pair of clean scissors and cut the suture that is left outside of the skin at the ends of your incision. 1. The small skin tapes can be removed 7 days after surgery if they have not fallen off by that point. 2. You may keep the wound open to air as much as possible to promote healing after post-op day number 5 unless told otherwise by your doctor. 3. If you think the wound looks like it is becoming infected (redness or worsening drainage) and/or you are experiencing fever, chill or worsening back pain and muscle spasms, contact the office so that we may evaluate you as soon as possible. B. Complications are uncommon, but please contact us if you have any signs or symptoms of: 1. wound infection (fever higher than 102.5 degrees F, redness, separation of wound, drainage, or increasing pain from the incision) 2. blood clots in legs (pain, swelling, redness and warmth in legs) 3. urinary tract infection (fever higher than 102.5 degrees F, burning upon urination or increased frequency of urination) 4. nerve problems (inability to walk on your toes or heels, numbness, loss of bowel or bladder control) 5. any other symptoms that concern you C. Please call the office at if you have any concerns or questions about your operation or recovery. D. No smoking! Smoking drastically decreases the chance of a solid fusion. E. Do not take any anti-inflammatory medications (Indocin, Advil, Motrin, Aspirin, Naprosyn, etc.) as these may inhibit the chance of a solid fusion. Tylenol is okay to take for pain. MANAGING PAIN AFTER SPINAL SURGERY 1. Narcotic medication is intended for short-term use and will be provided for surgical pain. Surgical pain usually lasts for a period of 4-6 weeks. Narcotic medication includes Percocet, Vicodin, Darvocet, Tylenol #3 or Lortab. 2. Longer-term pain is more appropriately treated with non-narcotic medication such as Tylenol ES. 3. Muscle spasm is not appropriately treated with narcotics. Muscle relaxers such as Soma, Flexeril or Skelaxin can be used along with Tylenol ES. 4. Remember that we all live with some "aches and pains". This is not unusual or uncommon after an injury or as we get older. a. Back pain is expected and may include muscle spasms for 4 to 6 weeks after surgery. The pain should gradually improve. If the pain worsens for no apparent reason, please contact the office. b. Intermittent leg pain may also be experienced and should not be concerned about unless it worsens for no apparent reason. If so, please contact the office. 5. We will provide appropriate medication within the normal guidelines of their prescribed use. We will also be very cautious and aware of potential abuse and extended duration of patients' medication needs. a. Pain medications are for your comfort and to assist with sleep and rest so that the tissue can heal. They are not provided in order to return to normal activity and should not be used through the day. To do so or worsening pain at night can result from ongoing tissue damage and development of tolerance to the prescribed medicine. 6. Please allow 2-3 days to process refills. Prescriptions will not be mailed but must be picked up at the office. FOLLOW UP VISIT: Keep your scheduled follow-up appointment. Any questions, please call the office at . Pending Studies at Discharge: No Stand-Alone Forms: [employer], Smoking Cessation Medications and DC Order Prescriptions: New tramadol 50 mg tablet 50 mg PO Q6H PRN (Reason: pain, moderate) Qty: 30 RF: 0 oxycodone 5 mg tablet 5 mg PO Q6H PRN (Reason: pain, severe) Qty: 30 RF: 0 Continued multivitamin Tablet 1 tab PO QAM RF: 0 bisoprolol-hydrochlorothiazide 5-6.25 mg Tablet 1 tab PO QAM RF: 0 levothyroxine 88 mcg Tablet 88 mcg PO QAM RF: 0 cholecalciferol (vitamin D3) [Vitamin D3] 25 mcg (1,000 unit) Capsule 75 mcg PO QAM RF: 0 cyanocobalamin (vitamin B-12) 1,000 mcg Capsule 1,000 mcg PO QAM RF: 0 Discharge Orders: Discharge Order (Routine); Ordered 06/10/20 Ordered By: Rashad Cowart Admission Data Admit Date/Time: 06/07/20 11:25 Attending Provider: Rashad Cowart Admit Provider: Rashad Cowart Primary Care Provider: Carmella Corral Other Providers: Trudy Kumar ; Keegan Sinha
== END 2020-06-10 14:02 | disposition home or self-care (01) | DRG 454 ==
LOC: ASU 06:09 → 3E 11:25